=== PATIENT | male | born 1990 | race Hispanic/Latino ===

== ENCOUNTER 2021-08-20 07:00 | Day surgery (SDC) | payer OTHER ==
[2021-08-19 12:44] LABS: BASOPHILS % (AUTO) 0.7 % (0.0-5.0); EOSINOPHILS % (AUTO) 2.2 % (0.0-8.0); HEMATOCRIT 45.5 % (42-54); LYMPHOCYTES % (AUTO) 27.5 % (21.0-51.0); MEAN CORPUSCULAR HEMOGLOBIN 29.5 pg (27.0-33.0); MEAN CORPUSCULAR HGB CONC 34.7 g/dL (32.0-36.0); MONOCYTES % (AUTO) 6.7 % (3.0-13.0); NEUTROPHILS % (AUTO) 62.1 % (40.0-77.0); PLATELET COUNT (AUTO) 425 K/uL (130-400); RED BLOOD CELL COUNT(AUTO) 5.35 MIL/uL (4.50-6.20); RED CELL DISTRIBUTION WIDTH 12.2 % (11.0-15.5); WHITE BLOOD COUNT (AUTO) 11.5 K/uL (4.8-10.8)
[2021-08-19 12:55] LABS: POTASSIUM 4.4 mmol/L (3.5-5.1)
[2021-08-20] VITALS (19 sets, daily range): BP systolic 150–181; BP diastolic 78–99
[~2021-08-20] VITALS: Ht 167.6 cm; Wt 102.1 kg
[~2021-08-20 07:00] MED LIST: CELE200 PO; TRAM50TA4 PO
[2021-08-20] MEDS: LACTATED RINGERS 1000ML 1,000 ML IV SCH ×2 (07:41→11:15)
[2021-08-20] MEDS ORDERED: CEFAZOLIN SODIUM 1 GM VIAL IVP ONE (08:00)
[2021-08-20] MEDS ORDERED: PROPOFOL 10 MG/ML 20ML VIAL IV ONE (09:28)
[2021-08-20] MEDS ORDERED: LIDOCAINE PF 100MG/5ML (2%) SYRINGE 5ML ONE (09:28)
[2021-08-20] MEDS ORDERED: GLYCOPYRROLATE 1 MG/5 ML SYRINGE ONE (09:28)
[2021-08-20] MEDS ORDERED: SUCCINYLCHOLINE CHLORIDE 20 MG/ML 10 ML VIAL ONE (09:28)
[2021-08-20] MEDS ORDERED: ONDANSETRON 4MG INJ ONE (09:29)
[2021-08-20] MEDS ORDERED: MIDAZOLAM HCL 1 MG/ML 2ML VIAL ONE (09:29)
[2021-08-20] MEDS ORDERED: NEOSTIGMINE 5MG/5ML SYR IV ONE (09:29)
[2021-08-20] MEDS ORDERED: FENTANYL CITRATE PF 50 MCG/1 ML 2ML VIAL ONE ×2 (09:30→10:19)
[2021-08-20] MEDS ORDERED: ROCURONIUM 10MG/1ML SYR 10 MG/ML ML ONE (09:30)
[2021-08-20] MEDS ORDERED: ROPIVACAINE 0.5% 5MG/ML 30ML IJ ONE (10:41)
[2021-08-20] MEDS ORDERED: KETOROLAC 30MG VIAL (30MG/ML) ONE (11:49)
[2021-08-20] MEDS ORDERED: MEPERIDINE-PF 25 MG/ML SYG ONE (12:42)
[2021-08-20] MEDS ORDERED: MEPERIDINE-PF 25 MG/ML SYG IV ONE (13:00)
== END 2021-08-20 14:00 | disposition home or self-care (01) ==
LOC: DAH 07:00
PROVIDERS: ATTEND Orthopaedic Surgery
DX: S76.112A Strain of left quadriceps muscle, fascia and tendon, initial encounter (principal); Z20.822 Contact with and (suspected) exposure to COVID-19; I10 Essential (primary) hypertension; E66.9 Obesity, unspecified; M12.562 Traumatic arthropathy, left knee; M25.462 Effusion, left knee; Z98.890 Other specified postprocedural states; X58.XXXA Exposure to other specified factors, initial encounter; Y93.89 Activity, other specified; Y92.89 Other specified places as the place of occurrence of the external cause; Y99.0 Civilian activity done for income or pay; Z68.36 Body mass index [BMI] 36.0-36.9, adult
CPT/HCPCS: 27380; 36415; 64447; 76942; 80048; 85025; 87635; A4215; A4221; A4222; A4223; A4649; A4663; A4930; A6223; A6260; C1713 ×2; C9803; J0330; J0690; J1885; J2001; J2175; J2250; J2405; J2704; J2710; J2795; J3010 ×2; J3490; J7120; L1830